=== PATIENT | female | born 1980 | race Caucasian/White ===

== ENCOUNTER 2016-09-01 12:03 | Emergency (ER) | payer BC ==
[~2016-09-01] VITALS: Ht 162.6 cm; Wt 53.5 kg
[2016-09-01] MEDS ORDERED: NORCO PO (12:10)
--- NOTE | 2016-09-01 12:15 | NUR ---
MSE DONE AT BEDSIDE BY DR CHAPPELL.
--- NOTE | 2016-09-01 12:48 | NUR ---
Patient discharged to home in stable conditon. Written and verbal after care instructions given. Patient verbalizes understanding of instructions.
== END 2016-09-01 12:49 | disposition home or self-care (01) ==
LOC: ER 12:03
DX: S63.617A Unspecified sprain of left little finger, initial encounter (principal); S63.615A Unspecified sprain of left ring finger, initial encounter; W23.0XXA Caught, crushed, jammed, or pinched between moving objects, initial encounter; Y93.89 Activity, other specified; Y92.89 Other specified places as the place of occurrence of the external cause; Y99.8 Other external cause status
CPT/HCPCS: 29130; 73130; 99284; A4663

== ENCOUNTER 2017-05-29 13:52 | Emergency (ER) | payer BC ==
[~2017-05-29 13:52] MED LIST: NORCO PO
--- NOTE | 2017-05-29 14:00 | NUR ---
PT CALLED IN FOR TRIAGE - WAS NOT IN WAITING ROOM.
== END 2017-05-29 14:00 | disposition left against medical advice (07) ==
LOC: ER 13:52
DX: Z53.21 Procedure and treatment not carried out due to patient leaving prior to being seen by health care provider (principal)